=== PATIENT | female | born 1950 | race Caucasian/White ===

== ENCOUNTER → 2021-10-17 | Outpatient (CLI) | payer MEDICARE | LOC: KOH-I 11:29 | DX: R06.02 Shortness of breath (principal) | CPT/HCPCS: 71046 ==

== ENCOUNTER → 2021-11-20 | Outpatient (CLI) | payer MEDICARE | LOC: HEART 5 10:49 | DX: I48.91 Unspecified atrial fibrillation (principal); R07.9 Chest pain, unspecified; R06.00 Dyspnea, unspecified; R06.02 Shortness of breath; I08.3 Combined rheumatic disorders of mitral, aortic and tricuspid valves | CPT/HCPCS: 93306 ==

== ENCOUNTER → 2021-12-10 | Outpatient (CLI) | payer MEDICARE | LOC: HEART 5 12-03 09:15 | DX: I48.91 Unspecified atrial fibrillation (principal); R07.9 Chest pain, unspecified; R06.00 Dyspnea, unspecified; R00.2 Palpitations; R06.02 Shortness of breath | CPT/HCPCS: 78452; A9502; J2785 ==